=== PATIENT | male | born 1990 | race Two or more races ===

== ENCOUNTER 2016-09-23 16:52 | Emergency (ER) ==
[2016-09-23 17:00] VITALS: BP 136/83; TEMP 98.9; BMI 24.4
--- NOTE | 2016-09-23 17:16 | CT ---
EXAM: CT brain without contrast HISTORY: Head trauma TECHNIQUE: CT of the brain without intravenous contrast FINDINGS: There is no acute hemorrhage midline shift or mass effect. No hydrocephalus or abnormal extra-axial fluid collection. No significant parenchymal attenuation abnormality. The bony cranium appears normal. The visualized paranasal sinuses are clear. Soft tissues without significant abnorm ality. IMPRESSION: 1. CT of the brain within normal limits.
--- NOTE | 2016-09-23 17:54 | ED.PDOC ---
General ED Provider: Dr. HUMA JOSHI Chief Complaint: Head Injury Stated Complaint: head injury Time Seen by Physician: 17:00 (blunt force see with johnathon and tech no neck pain) Mode of Arrival: Walk-In Information Source: Patient Exam Limitations: No limitations Nursing and Triage Documentation Reviewed and Agree: Yes Trauma/Injury Complaint Exam - Trauma Complaint/Exam Location of Pain or Injury: Reports: Head Mechanism of Injury: Reports: Other (blunt force) Onset/Duration: 1 hr Symptoms Are: Still present Initial Severity: Mild Current Severity: Mild Aggravating: Reports: None Alleviating: Reports: None Associated Signs and Symptoms: Denies: LOC, Confusion, Memory loss, Lethargy, Vomiting, Bleeding, Bruising, Swelling, Extremity disuse, Painful respiration, Hoarseness, Dysphagia, Hemoptysis, Significant blood loss Penetrating Injury Risk Factors: Reports: None Nexus Low Risk Criteria: No post-midline CS tender, No evidence of intoxicat., No Altered LOC, No focal neuro deficit, No distracting injuries Immobilization Removed Post Exam: No Glascow Coma Scale (see protocol): 15 Differential Diagnoses: Laceration Review of Systems - Review Of Systems Constitutional: Reports: No symptoms Eyes: Reports: No symptoms Ears, Nose, Mouth, Throat: Reports: No symptoms Respiratory: Reports: No symptoms Cardiac: Reports: No symptoms GI: Reports: No symptoms : Reports: No symptoms Musculoskeletal: Reports: No symptoms Skin: Reports: No symptoms Neurological: Reports: No symptoms Endocrine: Reports: No symptoms Hematologic/Lymphatic: Reports: No symptoms All Other Systems: Reviewed and Negative Past Medical History - Past Medical History Previously Healthy: Yes Endocrine: Reports: None Cardiovascular: Reports: None Respiratory: Reports: None Hematological: Reports: None Gastrointestinal: Reports: None Genitourinary: Reports: None Neuro/Psych: Reports: None Musculoskeletal: Reports: None Cancer: Reports: None - Surgical History General Surgical History: Reports: None - Family History Family History: Reports: None - Social History Smoking Status: Current every day smoker Hx Substance Use: No Alcohol Screening: None - Immunizations Tetanus Shot up to Date: Yes (within the last 5 years) Physical Exam - Physical Exam Appearance: Well-appearing, No pain distress, Well-nourished Eyes: GAYLE, EOMI, Conjunctiva clear ENT: Ears normal, Nose normal, Oropharynx normal Respiratory: Airway patent, Breath sounds clear, Breath sounds equal, Respirations nonlabored Cardiovascular: RRR, Pulses normal, No rub, No murmur GI/: Soft, Nontender, No masses, Bowel sounds normal, No Organomegaly Musculoskeletal: Normal strength, ROM intact, No edema, No calf tenderness Skin: Warm, Dry (3mm puncture wound scalp) Neurological: Sensation intact, Motor intact, Reflexes intact, Cranial nerves intact, Alert, Oriented Psychiatric: Affect appropriate, Mood appropriate Procedures - Laceration/Wound Repair No standard instances Wound Description: Other (puncture wound scalp star shaped 3 mm) Wound Repaired With: Dermabond Layer Closure?: No Sterile Dressing Applied?: No Splint Applied?: No Sling Applied?: No Critical Care Note - Critical Care Note Total Time (mins): 0 Course - Course Orders, Labs, Meds: Orders Category Date Time Status CT HEAD W/O CONTRAST Stat RADS 09/23/16 16:58 Ordered Vital Signs: Temp Pulse Resp BP Pulse Ox 09/23/16 16:53 98.9 F 69 20 136/83 95 Departure - Departure Time of Disposition: 17:55 Disposition: HOME SELF-CARE Discharge Problem: Injury of head Puncture wound of scalp Qualifiers: Encounter type: initial encounter Qualifier Code: (S01.03XA) Puncture wound without foreign body of scalp, initial encounter Instructions: Puncture Wound (ED) Condition: Good Pt referred to PMD for follow-up: No Allergies/Adverse Reactions: Allergies No Known Allergies Allergy (Unverified 09/23/16 16:57) Home Medications: Ambulatory Orders 1 [No Reported Medications] 09/23/16
== END 2016-09-23 18:09 | disposition home or self-care (01) ==
LOC: ED 16:52
DX: S01.03XA Puncture wound without foreign body of scalp, initial encounter (principal); S09.90XA Unspecified injury of head, initial encounter; W22.8XXA Striking against or struck by other objects, initial encounter; F17.210 Nicotine dependence, cigarettes, uncomplicated
CPT/HCPCS: 99283